=== PATIENT | female | born 1940 | race Caucasian/White ===

== ENCOUNTER → 2017-04-28 | Outpatient (CLI) | payer MEDICARE ==
[~2017-04-28] MED LIST: BIOT1TAB PO; CHOL5000 PO; CYANOCOBALAMIN PO; FOLIC ACID PO; GADOBUTROL 10 MMOL/10 ML VIAL ONE; GINK60TA PO; MULT-658 PO; OMEGA EPA DHA PO; PYRIDOXINE PO; [UNRECOGNIZED DRUG - OTHER] PO
== END | disposition home or self-care (01) ==
LOC: CFH 10:01
PROVIDERS: ATTEND Internal Medicine
DX: C50.811 Malignant neoplasm of overlapping sites of right female breast (principal); E11.9 Type 2 diabetes mellitus without complications
CPT/HCPCS: 82565; A9585; C8908